=== PATIENT | male | born 1970 | race Caucasian/White ===

== ENCOUNTER 2020-07-28 21:35 | Inpatient (IN) | payer OTHER ==
[2020-07-28] MEDS ORDERED: SODIUM CHLORIDE 0.9% 500 ML INFUS.BAG IV ONE ×2 (22:33→23:58)
[2020-07-28] MEDS ORDERED: FAMOTIDINE 20 MG/50 ML IVPB 20 MG/50 ML MG IVPB ONE ×2 (22:33→22:47)
[2020-07-28] MEDS ORDERED: ONDANSETRON 4 MG/2 ML VIAL IVPUSH ONE (22:33)
[2020-07-28] MEDS ORDERED: ONDANSETRON 4 MG/2 ML VIAL ONE (22:47)
[2020-07-28 23:09] LABS: BASO % 0.3 % (0-2.0); EOS % 0.2 % (0-4.5); HEMATOCRIT 40.8 % (35.4-49); HEMOGLOBIN 13.7 GM/dL (11.7-16.9); LYMPH % 18.4 % (8-40); MCH 31.1 pg (25.7-33.7); MCHC 33.7 g/dl (32.0-35.9); MEAN CELL VOLUME 92.4 fl (80-96); MONO % 5.3 % (3.8-10.2); NEUT % 75.8 % (42.8-82.8); PLATELET COUNT 106 K/MM3 (134-434); RBC 4.42 M/mm3 (4.00-5.60); RDW 16.9 % (11.9-15.9); WHITE BLOOD COUNT 7.2 K/mm3 (4.0-10.0)
[2020-07-28 23:16] LABS: INR 0.98 (0.83-1.09); PROTHROMBIN TIME (PATIENT) 11.9 SEC (9.7-13.0)
[2020-07-28 23:18] LABS: ACTIVATED PTT 36.3 SECONDS (25.2-36.5)
[2020-07-28] MEDS ORDERED: diazePAM CARPU-JECT 10 MG/2 ML DISP.SYRIN IVPUSH ONE (23:20)
[2020-07-28 23:24] LABS: EPI CELLS 13 /uL (0-25.1); HYALINE CASTS 1 /uL (0-3.1); PH,URINE >= 9.0 (5.0-8.0); URINE APPEARANCE CLOUDY; URINE BACTERIA 62 /uL (0-1359); URINE BILIRUBIN NEGATIVE (NEGATIVE); URINE COLOR YELLOW; URINE GLUCOSE (UA) NEGATIVE (NEGATIVE); URINE KETONE TRACE (NEGATIVE); URINE LEUK ESTERASE NEGATIVE (NEGATIVE); URINE NITRITE NEGATIVE (NEGATIVE); URINE PROTEIN 2+ (NEGATIVE); URINE RBC 45 /uL (0-23.9); URINE WBC 2 /uL (0-25.8)
[2020-07-28 23:30] LABS: CHLORIDE 103 mmol/L (98-107); POTASSIUM 3.4 mmol/L (3.5-5.1); SODIUM 144 mmol/L (136-145)
[2020-07-28 23:32] LABS: CALCIUM 8.9 mg/dL (8.5-10.1)
[2020-07-28 23:33] LABS: ALBUMIN 4.4 g/dl (3.4-5.0); ANION GAP 12 MMOL/L (8-16); BLOOD UREA NITROGEN 6.7 mg/dL (7-18); CO2 29 mmol/L (21-32); GLUCOSE,RANDOM 106 mg/dL (74-106); LIPASE 463 U/L (73-393); MAGNESIUM 2.1 mg/dL (1.8-2.4)
[2020-07-28 23:35] LABS: CREATININE 0.7 mg/dL (0.55-1.3)
[2020-07-28 23:36] LABS: PHOSPHOROUS 2.8 mg/dL (2.5-4.9); SGOT/AST 51 U/L (15-37); SGPT/ALT 34 U/L (13-61)
[2020-07-28 23:37] LABS: BILIRUBIN,TOTAL 0.5 mg/dL (0.2-1); TOT PROT 7.5 g/dl (6.4-8.2)
[2020-07-28 23:38] LABS: ALK PHOS 61 U/L (45-117)
[2020-07-28] MEDS ORDERED: diazePAM CARPU-JECT 10 MG/2 ML DISP.SYRIN ONE (23:40)
[2020-07-28 23:48] LABS: LACTIC ACID 4.8 mmol/L (0.4-2.0)
[2020-07-29] MEDS ORDERED: diazePAM CARPU-JECT 10 MG/2 ML DISP.SYRIN IVPUSH ONE ×2 (00:12→02:10)
[2020-07-29] MEDS ORDERED: diazePAM CARPU-JECT 10 MG/2 ML DISP.SYRIN ONE ×2 (00:51→02:28)
[2020-07-29] MEDS ORDERED: SODIUM CHLORIDE 0.9% 500 ML INFUS.BAG IV ONE (02:16)
[2020-07-29] MEDS ORDERED: chlordiazePOXIDE HCL 25 MG CAPSULE PO PRN (03:52)
[2020-07-29 04:38] LABS: LACTIC ACID 3.5 mmol/L (0.4-2.0)
[2020-07-29] MEDS ORDERED: SODIUM CHLORIDE 1,000 ML IV SCH (04:45)
[2020-07-29] MEDS ORDERED: chlordiazePOXIDE HCL 25 MG CAPSULE ONE ×3 (05:03→11:23)
[2020-07-29] MEDS ORDERED: PANTOPRAZOLE SODIUM 40 MG VIAL ONE ×2 (05:04→11:24)
[2020-07-29] MEDS ORDERED: KCL 10 MEQ IVPB 20 MEQ/200 ML INFUS.BAG IVPB ONE (05:04)
[2020-07-29] MEDS: chlordiazePOXIDE HCL 25 MG CAPSULE PO SCH ×4 (05:17→23:24)
[2020-07-29] MEDS: PANTOPRAZOLE SODIUM 40 MG VIAL IVPUSH SCH ×2 (05:17→11:49)
[2020-07-29] MEDS: KCL 10 MEQ IVPB 10 MEQ/100 ML INFUS.BAG IVPB SCH ×2 (05:17→06:26)
[2020-07-29] MEDS: FOLIC ACID INJECTION - 1 MG, THIAMINE HCL 100 MG, MULTIVIT INJECTION ADULT 10 ML in SOD... IVPB SCH ×2 (06:32→11:20)
[2020-07-29 07:05] LABS: HEMATOCRIT 33.9 % (35.4-49); HEMOGLOBIN 11.3 GM/dL (11.7-16.9); MCH 31.3 pg (25.7-33.7); MCHC 33.4 g/dl (32.0-35.9); MEAN CELL VOLUME 93.8 fl (80-96); MEAN PLT VOLUME 8.5 fl (7.5-11.1); PLATELET COUNT 84 K/MM3 (134-434); RBC 3.61 M/mm3 (4.00-5.60); WHITE BLOOD COUNT 4.5 K/mm3 (4.0-10.0)
[2020-07-29 07:26] LABS: POTASSIUM 3.7 mmol/L (3.5-5.1)
[2020-07-29 07:30] LABS: CALCIUM 7.6 mg/dL (8.5-10.1)
[2020-07-29 07:31] LABS: MAGNESIUM 1.7 mg/dL (1.8-2.4)
[2020-07-29 07:33] LABS: CHOLESTEROL 232 mg/dL (50-200)
[2020-07-29 07:34] LABS: CREATININE 0.6 mg/dL (0.55-1.3); TRIGLYCERIDES 73 mg/dL (0-150)
[2020-07-29 07:35] LABS: BILIRUBIN,TOTAL 0.7 mg/dL (0.2-1); LDL CHOLESTEROL (ONLY SJRH) 94 mg/dL (5-100)
[2020-07-29 07:36] LABS: PHOSPHOROUS 2.8 mg/dL (2.5-4.9); TOT PROT 5.9 g/dl (6.4-8.2)
[2020-07-29 07:37] LABS: HDL CHOLESTEROL 116 mg/dL (40-60)
[2020-07-29 07:44] LABS: ALBUMIN 3.4 g/dl (3.4-5.0)
[2020-07-29] MEDS: LACTATED RINGERS SOLUTION 1,000 ML/1,000 ML INFUS.BAG IV SCH ×2 (11:21→23:43)
[2020-07-29] MEDS ORDERED: LORazepam 2 MG/ML SDV VIAL ONE (11:24)
[2020-07-29] MEDS: LORazepam 2 MG/ML SDV VIAL IVPUSH PRN (11:49)
[2020-07-29 15:25] VITALS: BMI 29.7
[2020-07-29] MEDS: PANTOPRAZOLE SODIUM 80 MG in SODIUM CHLORIDE 100 ML IVPB SCH (18:07)
[2020-07-30 01:35] LABS: METHADONE, UR NEGATIVE ng/ml (CUTOFF=300); OPIATES, URI NEGATIVE ng/ml (CUTOFF=300)
[2020-07-30 01:36] LABS: PHENCYCLIDINE,URINE NEGATIVE ng/ml (CUTOFF=25); URINE AMPHETAMINES NEGATIVE ng/ml (CUTOFF=500)
[2020-07-30 01:57] LABS: COCAINE, UR NEGATIVE ng/ml (CUTOFF=300); URINE BARBITURATES NEGATIVE ng/ml (CUTOFF=200); URINE BENZODIAZEPINES NEGATIVE ng/ml (CUTOFF=200)
[2020-07-30] MEDS: PANTOPRAZOLE SODIUM 80 MG in SODIUM CHLORIDE 100 ML IVPB SCH ×2 (03:46→15:28)
[2020-07-30] MEDS: chlordiazePOXIDE HCL 25 MG CAPSULE PO SCH ×4 (05:40→22:28)
[2020-07-30] MEDS: LACTATED RINGERS SOLUTION 1,000 ML/1,000 ML INFUS.BAG IV SCH ×3 (08:22→17:59)
[2020-07-30 09:48] LABS: BASO % 0.5 % (0-2.0); EOS % 3.6 % (0-4.5); HEMATOCRIT 35.8 % (35.4-49); HEMOGLOBIN 12.4 GM/dL (11.7-16.9); LYMPH % 22.8 % (8-40); MCHC 34.8 g/dl (32.0-35.9); MEAN CELL VOLUME 92.1 fl (80-96); MEAN PLT VOLUME 8.7 fl (7.5-11.1); MONO % 7.4 % (3.8-10.2); NEUT % 65.7 % (42.8-82.8); PLATELET COUNT 81 K/MM3 (134-434); RBC 3.89 M/mm3 (4.00-5.60); RDW 16.4 % (11.9-15.9); WHITE BLOOD COUNT 4.7 K/mm3 (4.0-10.0)
[2020-07-30 10:07] LABS: POTASSIUM 3.4 mmol/L (3.5-5.1)
[2020-07-30] MEDS: LORazepam 2 MG/ML SDV VIAL IVPUSH PRN ×2 (10:27→19:56)
[2020-07-30 10:40] LABS: BLOOD UREA NITROGEN 8.3 mg/dL (7-18)
[2020-07-30 10:41] LABS: ALBUMIN 3.4 g/dl (3.4-5.0)
[2020-07-30 10:44] LABS: CREATININE 0.7 mg/dL (0.55-1.3)
[2020-07-30 10:45] LABS: BILIRUBIN,TOTAL 1.3 mg/dL (0.2-1); TOT PROT 6.1 g/dl (6.4-8.2)
[2020-07-30 10:51] LABS: CALCIUM 8.8 mg/dL (8.5-10.1)
[2020-07-30] MEDS ORDERED: POTASSIUM CHLORIDE TABS 20 MEQ TABLET.ER (FP) PO ONE (18:29)
[2020-07-30 18:45] LABS: BASO % 0.3 % (0-2.0); EOS % 2.5 % (0-4.5); HEMATOCRIT 38.2 % (35.4-49); HEMOGLOBIN 12.9 GM/dL (11.7-16.9); LYMPH % 12.7 % (8-40); MCH 31.6 pg (25.7-33.7); MCHC 33.8 g/dl (32.0-35.9); MEAN CELL VOLUME 93.4 fl (80-96); MEAN PLT VOLUME 8.9 fl (7.5-11.1); MONO % 6.8 % (3.8-10.2); NEUT % 77.7 % (42.8-82.8); PLATELET COUNT 86 K/MM3 (134-434); RBC 4.08 M/mm3 (4.00-5.60); RDW 16.3 % (11.9-15.9); WHITE BLOOD COUNT 4.5 K/mm3 (4.0-10.0)
[2020-07-31] MEDS ORDERED: chlordiazePOXIDE HCL 10 MG CAPSULE PO PRN
[2020-07-31] MEDS: PANTOPRAZOLE SODIUM 80 MG in SODIUM CHLORIDE 100 ML IVPB SCH (00:19)
[2020-07-31] MEDS ORDERED: ALPRAZolam 1 MG TABLET PO PRN (00:39)
[2020-07-31] MEDS: chlordiazePOXIDE HCL 10 MG CAPSULE PO SCH ×4 (04:42→22:54)
[2020-07-31] MEDS: LACTATED RINGERS SOLUTION 1,000 ML/1,000 ML INFUS.BAG IV SCH (07:21)
[2020-07-31 10:11] LABS: BASO % 0.2 % (0-2.0); EOS % 3.3 % (0-4.5); HEMATOCRIT 41.7 % (35.4-49); HEMOGLOBIN 14.5 GM/dL (11.7-16.9); LYMPH % 22.4 % (8-40); MCH 32.1 pg (25.7-33.7); MCHC 34.7 g/dl (32.0-35.9); MEAN CELL VOLUME 92.6 fl (80-96); MONO % 7.9 % (3.8-10.2); NEUT % 66.2 % (42.8-82.8); PLATELET COUNT 92 K/MM3 (134-434); RBC 4.51 M/mm3 (4.00-5.60); RDW 16.1 % (11.9-15.9); WHITE BLOOD COUNT 4.4 K/mm3 (4.0-10.0)
[2020-07-31 10:25] LABS: CALCIUM 9.1 mg/dL (8.5-10.1)
[2020-07-31 10:26] LABS: ALBUMIN 3.8 g/dl (3.4-5.0); BLOOD UREA NITROGEN 5.8 mg/dL (7-18); MAGNESIUM 1.7 mg/dL (1.8-2.4)
[2020-07-31 10:29] LABS: BILIRUBIN,DIRECT 0.3 mg/dL (0.0-0.2); CREATININE 0.7 mg/dL (0.55-1.3)
[2020-07-31 10:31] LABS: TOT PROT 6.9 g/dl (6.4-8.2)
[2020-07-31] MEDS ORDERED: POTASSIUM CHLORIDE TABS 20 MEQ TABLET.ER (FP) PO ONE (12:52)
[2020-07-31] MEDS ORDERED: MAGNESIUM SULF 50% (8.12 MEQ/2 ML-1 GM VIAL) IVPB ONE (12:52)
[2020-07-31] MEDS: LORazepam 2 MG/ML SDV VIAL IVPUSH PRN ×2 (14:47→21:48)
[2020-07-31] MEDS: CIPROFLOXACIN 0.3% EYE DROPS 5 ML BOTTLE OD SCH ×2 (17:08→21:48)
[2020-07-31] MEDS: POTASSIUM CHLORIDE IV SCH ×2 (17:28→21:46)
[2020-07-31] MEDS: SODIUM CHLORIDE IV SCH ×2 (17:28→21:46)
[2020-07-31] MEDS ORDERED: PT OWN MED DRAWER 7, Y5N ONE (21:43)
[2020-08-01] MEDS: POTASSIUM CHLORIDE IV SCH ×2 (03:23→05:02)
[2020-08-01] MEDS: SODIUM CHLORIDE IV SCH ×2 (03:23→05:02)
[2020-08-01] MEDS: LORazepam 2 MG/ML SDV VIAL IVPUSH PRN (04:10)
[2020-08-01] MEDS ORDERED: chlordiazePOXIDE HCL 10 MG CAPSULE PO SCH ×2 (05:00→06:15)
[2020-08-01 09:17] LABS: HEMOGLOBIN 13.9 GM/dL (11.7-16.9); MCH 31.9 pg (25.7-33.7); RBC 4.36 M/mm3 (4.00-5.60)
[2020-08-01 09:21] LABS: BASO % 0.3 % (0-2.0); EOS % 2.7 % (0-4.5); HEMATOCRIT 40.4 % (35.4-49); LYMPH % 21.2 % (8-40); MCHC 34.4 g/dl (32.0-35.9); MEAN CELL VOLUME 92.7 fl (80-96); MEAN PLT VOLUME 8.7 fl (7.5-11.1); NEUT % 64.8 % (42.8-82.8); PLATELET COUNT 112 K/MM3 (134-434); RDW 16.2 % (11.9-15.9); WHITE BLOOD COUNT 4.8 K/mm3 (4.0-10.0)
[2020-08-01 09:30] LABS: POTASSIUM 3.8 mmol/L (3.5-5.1)
[2020-08-01 09:58] LABS: ALBUMIN 3.7 g/dl (3.4-5.0); BLOOD UREA NITROGEN 4.6 mg/dL (7-18); CALCIUM 8.9 mg/dL (8.5-10.1)
[2020-08-01 10:00] LABS: BILIRUBIN,DIRECT 0.2 mg/dL (0.0-0.2)
[2020-08-01] MEDS ORDERED: PANTOPRAZOLE SODIUM 40 MG VIAL IVPUSH SCH (10:00)
[2020-08-01 10:01] LABS: CREATININE 0.7 mg/dL (0.55-1.3); PHOSPHOROUS 3.5 mg/dL (2.5-4.9)
[2020-08-01 10:02] LABS: BILIRUBIN,TOTAL 0.9 mg/dL (0.2-1); TOT PROT 6.7 g/dl (6.4-8.2)
[2020-08-01] MEDS: CIPROFLOXACIN 0.3% EYE DROPS 5 ML BOTTLE OD SCH (10:23)
[2020-08-01] MEDS ORDERED: LORazepam 2 MG/ML SDV VIAL IVPUSH ONE (19:00)
[2020-08-01] MEDS ORDERED: LORazepam 2 MG/ML SDV VIAL IVPUSH PRN (20:59)
[2020-08-01] MEDS: chlordiazePOXIDE 5 MG CAPSULE PO SCH (22:03)
[2020-08-01 22:17] VITALS: TEMP 98.3
[2020-08-02] MEDS ORDERED: chlordiazePOXIDE HCL 10 MG CAPSULE PO ONE (05:00)
[2020-08-02] MEDS: chlordiazePOXIDE 5 MG CAPSULE PO SCH ×2 (06:18→13:03)
[2020-08-02 09:24] LABS: BILIRUBIN,DIRECT 0.2 mg/dL (0.0-0.2)
[2020-08-02 09:26] LABS: BILIRUBIN,TOTAL 0.9 mg/dL (0.2-1); TOT PROT 7.1 g/dl (6.4-8.2)
[2020-08-02] MEDS ORDERED: PANTOPRAZOLE 40 MG TABLET PO SCH (10:00)
[2020-08-02] MEDS: CIPROFLOXACIN 0.3% EYE DROPS 5 ML BOTTLE OD SCH (10:09)
[2020-08-02 10:48] VITALS: BP 98/75; PULSE 92
== END 2020-08-02 13:10 | disposition home or self-care (01) | DRG 242 ==
LOC: JER 21:35 → JERBED 07-29 02:43 → J6S 07-29 13:56
PROVIDERS: ADMIT Internal Medicine; ATTEND Student in an Organized Health Care Education/Training Program
PROC: HZ2ZZZZ Detoxification Services for Substance Abuse Treatment (ICD-10-PCS; 2020-07-28)
PROC: 0DB68ZX Excision of Stomach, Via Natural or Artificial Opening Endoscopic, Diagnostic (ICD-10-PCS; principal; 2020-08-01 10:00)
DX: K22.6 Gastro-esophageal laceration-hemorrhage syndrome (principal); K21.9 Gastro-esophageal reflux disease without esophagitis; F10.230 Alcohol dependence with withdrawal, uncomplicated; K92.0 Hematemesis; I10 Essential (primary) hypertension; E78.5 Hyperlipidemia, unspecified; D69.6 Thrombocytopenia, unspecified; E87.2 Acidosis; E87.6 Hypokalemia; K25.9 Gastric ulcer, unspecified as acute or chronic, without hemorrhage or perforation; B96.81 Helicobacter pylori [H. pylori] as the cause of diseases classified elsewhere; K29.20 Alcoholic gastritis without bleeding
CPT/HCPCS: 36415; 70450-TC; 71045-TC-FY; 74177-TC; 74220-TC-FY; 74240-TC-FY; 80048; 80053; 80061; 80074; 80076; 80307; 81003; 82140; 82550; 82553; 83036; 83605; 83690; 83721; 83735; 84100; 84484; 85025; 85027; 85610; 85730; 87077; 87086; 88305-TC; 93005; 93010; 99285-25; C9803; Q9967; U0003; U0005

== ENCOUNTER 2021-03-20 17:36 | Inpatient (IN) | payer OTHER ==
[2021-03-20] MEDS ORDERED: diazePAM CARPU-JECT 10 MG/2 ML DISP.SYRIN IVPUSH ONE (18:21)
[2021-03-20] MEDS ORDERED: diazePAM CARPU-JECT 10 MG/2 ML DISP.SYRIN ONE (18:26)
[2021-03-20] MEDS ORDERED: ONDANSETRON 4 MG/2 ML VIAL IVPB ONE (18:27)
[2021-03-20] MEDS ORDERED: LACTATED RINGERS SOLUTION 1000 ML INFUS.BAG IV ONE (18:30)
[2021-03-20] MEDS ORDERED: ONDANSETRON 4 MG/2 ML VIAL ONE ×2 (18:33→19:28)
[2021-03-20] MEDS ORDERED: ONDANSETRON 4 MG/2 ML VIAL IVPUSH ONE (19:18)
[2021-03-20 20:11] LABS: BASO % 0.3 % (0-2.0); EOS % 0.2 % (0-4.5); HEMATOCRIT 45.2 % (35.4-49); HEMOGLOBIN 15.5 GM/dL (11.7-16.9); LYMPH % 10.6 % (8-40); MCH 30.4 pg (25.7-33.7); MCHC 34.2 g/dl (32.0-35.9); MEAN CELL VOLUME 88.8 fl (80-96); MONO % 5.3 % (3.8-10.2); NEUT % 83.6 % (42.8-82.8); PLATELET COUNT 123 10^3/uL (134-434); RBC 5.09 M/mm3 (4.00-5.60); RDW 14.9 % (11.9-15.9); WHITE BLOOD COUNT 6.7 K/mm3 (4.0-10.0)
[2021-03-20 20:19] LABS: INR 0.99 (0.83-1.09); PROTHROMBIN TIME (PATIENT) 11.6 SEC (9.7-13.0)
[2021-03-20 20:21] LABS: ACTIVATED PTT 32.1 SECONDS (25.2-36.5)
[2021-03-20 20:30] LABS: CHLORIDE 100 mmol/L (98-107); SODIUM 141 mmol/L (136-145)
[2021-03-20 20:32] LABS: ALBUMIN 4.5 g/dl (3.4-5.0); ANION GAP 14 MMOL/L (8-16); BLOOD UREA NITROGEN 16.8 mg/dL (7-18); CALCIUM 8.7 mg/dL (8.5-10.1); CO2 28 mmol/L (21-32); GLUCOSE,RANDOM 112 mg/dL (74-106)
[2021-03-20 20:36] LABS: CREATININE 0.9 mg/dL (0.55-1.3); PHOSPHOROUS 2.8 mg/dL (2.5-4.9); SGOT/AST 83 U/L (15-37); SGPT/ALT 62 U/L (13-61)
[2021-03-20 20:38] LABS: ALK PHOS 71 U/L (45-117); BILIRUBIN,TOTAL 1.2 mg/dL (0.2-1); TOT PROT 7.8 g/dl (6.4-8.2)
[2021-03-20] MEDS ORDERED: diazePAM 5 MG TABLET PO ONE (23:59)
[2021-03-21] MEDS ORDERED: diazePAM 5 MG TABLET ONE (00:19)
[2021-03-21] MEDS ORDERED: morphine SULFATE 4 MG/ML VIAL IVPUSH PRN (01:20)
[2021-03-21] MEDS ORDERED: PROCHLORPERAZINE INJECTION 10 MG/2 ML VIAL IVPB PRN (01:26)
[2021-03-21] MEDS ORDERED: FOLIC ACID 1 MG TABLET (FP) PO ONE (01:27)
[2021-03-21] MEDS ORDERED: FOLIC ACID 1 MG TABLET (FP) ONE (01:42)
[2021-03-21] MEDS: LACTATED RINGERS SOLUTION 1,000 ML IV SCH ×2 (02:07→20:26)
[2021-03-21] MEDS: PANTOPRAZOLE SODIUM 40 MG VIAL IVPUSH SCH ×2 (02:07→11:01)
[2021-03-21] MEDS ORDERED: FOLIC ACID INJECTION - 1 MG, THIAMINE HCL 100 MG, MULTIVIT INJECTION ADULT 10 ML in SOD... IVPB ONE (02:30)
[2021-03-21] MEDS ORDERED: SODIUM CHLORIDE 1,000 ML IV SCH (06:00)
[2021-03-21 07:24] LABS: BASO % 0.4 % (0-2.0); EOS % 2.3 % (0-4.5); HEMATOCRIT 40.4 % (35.4-49); HEMOGLOBIN 13.8 GM/dL (11.7-16.9); LYMPH % 24.1 % (8-40); MCH 30.5 pg (25.7-33.7); MCHC 34.1 g/dl (32.0-35.9); MEAN CELL VOLUME 89.5 fl (80-96); NEUT % 66.2 % (42.8-82.8); PLATELET COUNT 103 10^3/uL (134-434); RBC 4.52 M/mm3 (4.00-5.60); RDW 15.1 % (11.9-15.9); WHITE BLOOD COUNT 5.3 K/mm3 (4.0-10.0)
[2021-03-21 07:28] LABS: INR 1.06 (0.83-1.09); PROTHROMBIN TIME (PATIENT) 12.4 SEC (9.7-13.0)
[2021-03-21 07:31] LABS: ACTIVATED PTT 32.1 SECONDS (25.2-36.5)
[2021-03-21 08:05] LABS: CALCIUM 8.6 mg/dL (8.5-10.1)
[2021-03-21 08:06] LABS: ALBUMIN 3.7 g/dl (3.4-5.0); BLOOD UREA NITROGEN 16.6 mg/dL (7-18); MAGNESIUM 2.2 mg/dL (1.8-2.4)
[2021-03-21 08:08] LABS: CREATININE 0.8 mg/dL (0.55-1.3)
[2021-03-21 08:09] LABS: PHOSPHOROUS 2.9 mg/dL (2.5-4.9)
[2021-03-21 08:10] LABS: BILIRUBIN,TOTAL 1.4 mg/dL (0.2-1)
[2021-03-21 08:11] LABS: TOT PROT 6.6 g/dl (6.4-8.2)
[2021-03-21] MEDS: LORazepam 2 MG/ML SDV VIAL IVPUSH PRN (11:00)
[2021-03-21] MEDS: THIAMINE HCL 100 MG TABLET (FP) PO SCH (11:01)
[2021-03-21] MEDS ORDERED: TRIMETHOBENZAMIDE HCL 200MG/2ML INJ IM PRN (12:17)
[2021-03-21] MEDS: CYANOCOBALAMIN (VITAMIN B-12) 100 MCG TABLET PO SCH (13:48)
[2021-03-21 14:19] LABS: EPI CELLS 8 /uL (0-25.1); HYALINE CASTS 1 /uL (0-3.1); PH,URINE 8.5 (5.0-8.0); URINE APPEARANCE CLEAR; URINE BACTERIA 11 /uL (0-1359); URINE BILIRUBIN NEGATIVE (NEGATIVE); URINE COLOR DK YELLOW; URINE GLUCOSE (UA) NEGATIVE (NEGATIVE); URINE KETONE 3+ (NEGATIVE); URINE LEUK ESTERASE NEGATIVE (NEGATIVE); URINE NITRITE NEGATIVE (NEGATIVE); URINE PROTEIN 1+ (NEGATIVE); URINE RBC 89 /uL (0-23.9); URINE WBC 4 /uL (0-25.8)
[2021-03-21 16:03] VITALS: BMI 30.9
[2021-03-21] MEDS ORDERED: PANTOPRAZOLE SODIUM 40 MG VIAL IVPUSH SCH (22:00)
[2021-03-22] MEDS: LACTATED RINGERS SOLUTION 1,000 ML IV SCH (02:48)
[2021-03-22 08:49] LABS: BASO % 0.3 % (0-2.0); EOS % 3.2 % (0-4.5); HEMATOCRIT 39.6 % (35.4-49); HEMOGLOBIN 13.4 GM/dL (11.7-16.9); LYMPH % 21.6 % (8-40); MCHC 33.9 g/dl (32.0-35.9); MEAN CELL VOLUME 88.5 fl (80-96); MEAN PLT VOLUME 8.6 fl (7.5-11.1); MONO % 5.9 % (3.8-10.2); PLATELET COUNT 92 10^3/uL (134-434); RBC 4.47 M/mm3 (4.00-5.60); RDW 14.6 % (11.9-15.9); WHITE BLOOD COUNT 4.8 K/mm3 (4.0-10.0)
[2021-03-22 09:16] LABS: ALBUMIN 3.5 g/dl (3.4-5.0); BLOOD UREA NITROGEN 11.8 mg/dL (7-18); CALCIUM 8.4 mg/dL (8.5-10.1)
[2021-03-22 09:17] LABS: MAGNESIUM 2.2 mg/dL (1.8-2.4)
[2021-03-22 09:19] LABS: CREATININE 0.7 mg/dL (0.55-1.3)
[2021-03-22 09:20] LABS: PHOSPHOROUS 3.4 mg/dL (2.5-4.9)
[2021-03-22 09:21] LABS: BILIRUBIN,TOTAL 1.1 mg/dL (0.2-1); TOT PROT 6.3 g/dl (6.4-8.2)
[2021-03-22] MEDS ORDERED: PT OWN MED DRAWER 7, Y5N ONE (09:33)
[2021-03-22] MEDS ORDERED: PANTOPRAZOLE 40 MG TABLET PO SCH (10:00)
[2021-03-22] MEDS: THIAMINE HCL 100 MG TABLET (FP) PO SCH (10:02)
[2021-03-22] MEDS: CYANOCOBALAMIN (VITAMIN B-12) 100 MCG TABLET PO SCH (10:02)
[2021-03-22] MEDS ORDERED: POTASSIUM CHLORIDE ORAL LIQUID 20 MEQ/15 ML PO ONE (11:17)
[2021-03-22] MEDS ORDERED: KCL 10 MEQ IVPB 10 MEQ/100 ML INFUS.BAG IVPB SCH (11:30)
[2021-03-22] MEDS ORDERED: MIDAZOLAM HCL 2 MG/2 ML SINGLE DOSE VIAL ONE (11:56)
[2021-03-22] MEDS ORDERED: KETAMINE HCL 500 MG/10 ML VIAL ONE (11:56)
[2021-03-22] MEDS ORDERED: POTASSIUM CHLORIDE ORAL LIQUID 20 MEQ/15 ML ONE (14:17)
[2021-03-22] MEDS: LORazepam 2 MG/ML SDV VIAL IVPUSH PRN (21:25)
[2021-03-23] MEDS ORDERED: PT OWN MED DRAWER 7, Y5N ONE (09:53)
[2021-03-23] MEDS: CYANOCOBALAMIN (VITAMIN B-12) 100 MCG TABLET PO SCH (09:58)
[2021-03-23] MEDS: THIAMINE HCL 100 MG TABLET (FP) PO SCH (09:58)
[2021-03-23] MEDS: LORazepam 2 MG/ML SDV VIAL IVPUSH PRN (09:59)
[2021-03-23 10:00] LABS: HEMATOCRIT 43.2 % (35.4-49); HEMOGLOBIN 14.9 GM/dL (11.7-16.9); MCH 30.8 pg (25.7-33.7); MCHC 34.5 g/dl (32.0-35.9); MEAN CELL VOLUME 89.4 fl (80-96); MEAN PLT VOLUME 9.1 fl (7.5-11.1); PLATELET COUNT 111 10^3/uL (134-434); RBC 4.83 M/mm3 (4.00-5.60); RDW 14.8 % (11.9-15.9); WHITE BLOOD COUNT 4.6 K/mm3 (4.0-10.0)
[2021-03-23] MEDS ORDERED: CLARITHROMYCIN 500 MG TABLET (UD) PO SCH (10:00)
[2021-03-23] MEDS ORDERED: AMOXICILLIN 500 MG CAPSULE (FP) PO SCH (10:00)
[2021-03-23] MEDS ORDERED: PANTOPRAZOLE 20 MG TABLET PO SCH (10:00)
[2021-03-23 10:18] LABS: CALCIUM 8.4 mg/dL (8.5-10.1)
[2021-03-23 10:19] LABS: BLOOD UREA NITROGEN 17.2 mg/dL (7-18); MAGNESIUM 2.1 mg/dL (1.8-2.4)
[2021-03-23 10:22] LABS: PHOSPHOROUS 3.5 mg/dL (2.5-4.9)
[2021-03-23 10:28] LABS: CREATININE 0.9 mg/dL (0.55-1.3)
[2021-03-23 15:34] VITALS: BP 116/81; PULSE 95; TEMP 97.4
== END 2021-03-23 18:46 | disposition home or self-care (01) | DRG 241 ==
LOC: JER 17:36 → JERBED 21:33 → J5S 03-21 09:50
PROVIDERS: ADMIT Internal Medicine; ATTEND Internal Medicine
PROC: 0DB68ZX Excision of Stomach, Via Natural or Artificial Opening Endoscopic, Diagnostic (ICD-10-PCS; principal; 2021-03-22 11:30)
DX: K29.71 Gastritis, unspecified, with bleeding (principal); B96.81 Helicobacter pylori [H. pylori] as the cause of diseases classified elsewhere; A04.8 Other specified bacterial intestinal infections; F10.239 Alcohol dependence with withdrawal, unspecified; I77.819 Aortic ectasia, unspecified site; K27.9 Peptic ulcer, site unspecified, unspecified as acute or chronic, without hemorrhage or perforation; R74.01 Elevation of levels of liver transaminase levels; K92.0 Hematemesis; K42.9 Umbilical hernia without obstruction or gangrene
CPT/HCPCS: 36415; 71045-TC-FY; 71260-TC; 74177-TC; 76700-TC; 80048; 80053; 81003; 82550; 82553; 83690; 83735; 84100; 84484; 85025; 85027; 85610; 85730; 86850; 86900; 86901; 87340; 87517; 87902; 88305-TC; 88342-TC; 93005; 93010; 93306-TC; 99285-25; C9803; Q9967; U0003; U0005